=== PATIENT | male | born 1945 | race Hispanic/Latino ===

== ENCOUNTER 2019-11-02 06:33 | Day surgery (SDC) | payer OTHER ==
[2019-10-31 13:08] VITALS: BP 141/64
[2019-10-31 13:25] LABS: BASOPHILS % (AUTO) 0.5 % (0.0-5.0); EOSINOPHILS % (AUTO) 3.1 % (0.0-8.0); HEMATOCRIT 43.3 % (42-54); LYMPHOCYTES % (AUTO) 40.6 % (21.0-51.0); MEAN CORPUSCULAR HEMOGLOBIN 30.5 pg (27.0-33.0); MEAN CORPUSCULAR HGB CONC 33.5 g/dL (32.0-36.0); MEAN CORPUSCULAR VOLUME 91.2 fL (79-99); MONOCYTES % (AUTO) 7.8 % (3.0-13.0); NEUTROPHILS % (AUTO) 47.6 % (40.0-77.0); PLATELET COUNT (AUTO) 193 K/uL (130-400); RED BLOOD CELL COUNT(AUTO) 4.75 MIL/uL (4.50-6.20); RED CELL DISTRIBUTION WIDTH 13.9 % (11.0-15.5); WHITE BLOOD COUNT (AUTO) 7.8 K/uL (4.8-10.8)
[2019-10-31 13:33] LABS: CREATININE 1.5 mg/dL (0.5-1.5); POTASSIUM 4.3 mmol/L (3.5-5.1)
[2019-10-31 13:37] LABS: INR 1.02 (0.85-1.15); PARTIAL THROMBOPLASTIN TIME 29.6 SEC (26.3-35.5); PROTHROMBIN TIME 10.7 SEC (9.6-11.6)
[2019-10-31 14:01] LABS: APPEARANCE,URINE Clear (CLEAR); BILIRUBIN,URINE Negative (NEGATIVE); COLOR,URINE Yellow (YELLOW); GLUCOSE, URINE (UA) Negative (NEGATIVE); KETONES,URINE Negative (NEGATIVE); LEUKOCYTE ESTERASE ,URINE Negative (NEGATIVE); NITRATE,URINE Negative (NEGATIVE); OCCULT BLOOD,URINE Negative (NEGATIVE); PH,URINE 6.5 (5.0-8.0); PROTEIN,URINE POS 1+ mg/dL (NEGATIVE)
[2019-10-31 14:12] LABS: BACTERIA,URINE Rare /HPF (None Seen); RBC,URINE 0-1 /HPF (0-1); SQUAMOUS EPITHELIAL CELL,UR Rare /HPF (0-2); WBC,URINE 0-1 /HPF (0-1)
--- NOTE | 2019-11-01 13:54 | NUR ---
ABNORMAL LABS, CHEST XRAY CREAT 1.5, AND CHEST X RAY RESULT REPORTED TO WILL BENTLEY. ORDERS TO REPEAT BMP IN AM UPON ARRIVAL. NO OTHER ORDERS GIVEN.
[2019-11-02] VITALS (11 sets, daily range): BP systolic 127–160; BP diastolic 50–76
[~2019-11-02] VITALS: Ht 170.2 cm; Wt 104.3 kg
[~2019-11-02 06:33] MED LIST: AMLO5TAB9 PO; APIX5TAB PO; GEMF600T5 PO; HYDR25TA PO; LISI-617 PO; METO25TA6 PO; MULT-248 PO; OMEG-148 PO; PRAV40TA3 PO; SODIUM CHLORIDE 0.9% 500ML 500 ML IV SCH; TAMS-1 PO
[2019-11-02 07:08] LABS: CREATININE 1.4 mg/dL (0.5-1.5); POTASSIUM 4.2 mmol/L (3.5-5.1)
[2019-11-02] MEDS ORDERED: SODIUM CHLORIDE 0.9% 1000ML 1,000 ML IV SCH ×2 (07:45→12:09)
[2019-11-02] MEDS ORDERED: IOHEXOL 350 MG/ML 100ML INFUS..BTL IV ONE (11:04)
[2019-11-02] MEDS ORDERED: BIVALIRUDIN 250 MG/VIAL IV ONE (11:04)
[2019-11-02] MEDS ORDERED: FENTANYL CITRATE PF 50 MCG/1 ML 2ML VIAL ONE (11:05)
[2019-11-02] MEDS ORDERED: MIDAZOLAM HCL 1 MG/ML 2ML VIAL ONE (11:05)
[2019-11-02] MEDS ORDERED: LIDOCAINE HCL 2% 20ML ONE (11:05)
[2019-11-02] MEDS ORDERED: IOHEXOL-350 50ML VIAL IV ONE (11:05)
[2019-11-02] MEDS ORDERED: NITROGLYCERIN 5 MG/ML 10 ML VIAL IV ONE (11:05)
[2019-11-02] MEDS ORDERED: GLUCAGON 1MG KIT 1 MG ML IM PRN (12:15)
[2019-11-02] MEDS ORDERED: HYDRALAZINE HCL 20 MG/ML VIAL IV PRN (12:15)
[2019-11-02] MEDS ORDERED: ACETAMINOPHEN-CODEINE 300/30MG TAB PO PRN (12:15)
[2019-11-02] MEDS ORDERED: DEXTROSE 50%-WATER 50 ML DISP.SYRIN IV PRN (12:15)
--- NOTE | 2019-11-02 15:55 | NUR ---
REPORT/RECEIVE REPORT RECEIVED FROM CAROLIN LICONA RN. PT RECEIVED SUPINE ON BED, STABLE. NO COMPLAINTS MADE. AT BEDSIDE. RIGHT GROIN SOFT, DRESSING DRY AND INTACT, NO OOZING NO HEMATOMA NOTED. WILL CONTINUE TO MONITOR PT.
--- NOTE | 2019-11-02 16:30 | NUR ---
ANGELLA CALLED [facility] TO CLARIFY WHEN TO RESUME ELIQUIS. PER [facility], PT MAY RESUME ELIQUIS ON THURSDAY MORNING 11/04/19. PT AND GIVEN INSTRUCTIONS. VERBALIZED UNDERSTANDING.
--- NOTE | 2019-11-02 17:10 | NUR ---
DISCHARGE PT DISCHARGED VIA WHEELCHAIR WITH . PT STABLE. CATH SITE RIGHT GROIN REMAINS SOFT, DRESSING DRY AND INTACT, NO OOZING NO HEMATOMA NOTED, DENIES PAIN. DISCHARGE INSTRUCTIONS GIVEN TO AND PT, VERBALIZED UNDERSTANDING. VOIDED PRIOR TO DISCHARGE.
== END 2019-11-02 17:10 | disposition home or self-care (01) ==
LOC: DAH 06:33
PROVIDERS: ATTEND Internal Medicine Cardiovascular Disease
DX: I25.118 Atherosclerotic heart disease of native coronary artery with other forms of angina pectoris (principal); I48.20 Chronic atrial fibrillation, unspecified; E78.00 Pure hypercholesterolemia, unspecified; I11.0 Hypertensive heart disease with heart failure; Z79.01 Long term (current) use of anticoagulants; Z79.899 Other long term (current) drug therapy; Z87.891 Personal history of nicotine dependence; Z98.49 Cataract extraction status, unspecified eye; Z82.49 Family history of ischemic heart disease and other diseases of the circulatory system
CPT/HCPCS: 36415 ×2; 71045; 80048 ×2; 81001; 85025; 85610; 85730; 93005; 93458; 96360; 96361; C1894 ×2; J1644; J3490 ×2; J7030; Q9965; Q9967; J0583; J2250; J3010